=== PATIENT | male | born 1995 | race Hispanic/Latino ===

== ENCOUNTER 2022-10-03 08:15 | Emergency (ER) | payer SELFPAY ==
--- NOTE | 2022-10-03 09:58 | RAD REPORT ---
EXAM DESCRIPTION: Yamilka Single View10/03/2022 9:23 am CLINICAL HISTORY: Cough COMPARISON: 2020 FINDINGS: The lungs appear clear of acute infiltrate. The heart is normal size IMPRESSION: No acute abnormalities displayed
--- NOTE | 2022-10-03 10:01 | EDPHYS ---
Physician Documentation [facility] Name: Milan Perez Age: 26 yrs Sex: Male : 1995 Arrival Date: 10/03/2022 Time: 08:20 Bed IW1 Private MD: ED Physician Huey Samano HPI: 10/03 08:26 This 26 yrs old Male presents to ER via Unassigned with complaints of Ear Pain.jh7 08:26 The patient presents with pain, moderate. The complaints affect the right ear. Onset: jh7 The symptoms/episode began/occurred yesterday. 26-year-old male presents with right ear pain starting yesterday evening. The patient states the pain woke him up last night. Denies any medical history or allergies.. Historical: - Allergies: 08:36 No Known Allergies; jl7 - Home Meds: 08:36 None [Active]; jl7 - PMHx: 08:36 None; jl7 - PSHx: 08:36 None; jl7 - Immunization history:: Client reports receiving the 2nd dose of the Covid vaccine. - Social history:: Smoking status: Patient denies any tobacco usage or history of. ROS: 08:26 ENT: Positive for ear pain, Negative for sinus pain, sore throat. jh7 08:26 All other systems are negative. 08:26 Constitutional: Negative for fever, chills, and weight loss, Eyes: Negative for injury, jh7 pain, redness, and discharge, Neck: Negative for injury, pain, and swelling, Cardiovascular: Negative for chest pain, palpitations, and edema, Abdomen/GI: Negative for abdominal pain, nausea, vomiting, diarrhea, and constipation, Back: Negative for injury and pain, MS/Extremity: Negative for injury and deformity, Skin: Negative for injury, rash, and discoloration, Neuro: Negative for headache, weakness, numbness, tingling, and seizure. 08:26 Respiratory: Positive for cough, Negative for shortness of breath, wheezing. Exam: 08:26 Constitutional: This is a well developed, well nourished patient who is awake, alert, jh7 and in no acute distress. Head/Face: Normocephalic, atraumatic. Eyes: Pupils equal round and reactive to light, extra-ocular motions intact. Lids and lashes normal. Conjunctiva and sclera are non-icteric and not injected. Cornea within normal limits. Periorbital areas with no swelling, redness, or edema. Neck: Trachea midline, no thyromegaly or masses palpated, and no cervical lymphadenopathy. Supple, full range of motion without nuchal rigidity, or vertebral point tenderness. No Meningismus. Cardiovascular: Regular rate and rhythm with a normal S1 and S2. No gallops, murmurs, or rubs. Normal PMI, no JVD. No pulse deficits. Respiratory: Lungs have equal breath sounds bilaterally, clear to auscultation and percussion. No rales, rhonchi or wheezes noted. No increased work of breathing, no retractions or nasal flaring. Back: No spinal tenderness. No costovertebral tenderness. Full range of motion. Skin: Warm, dry with normal turgor. Normal color with no rashes, no lesions, and no evidence of cellulitis. MS/ Extremity: Pulses equal, no cyanosis. Neurovascular intact. Full, normal range of motion. Neuro: Awake and alert, GCS 15, oriented to person, place, time, and situation. Motor strength 5/5 in all extremities. Sensory grossly intact. Normal gait. 08:26 ENT: External ear(s): are unremarkable, Ear canal(s): are normal, TM's: bulging, on the right, erythema, that is moderate. Vital Signs: 08:34 BP 146 / 95; Pulse 71; Resp 17; Temp 98.2(TE); Pulse Ox 99% on R/A; Weight 120.2 kg; 7 Height 6 ft. 0 in. (182.88 cm); Pain 6/10; 08:34 Body Mass Index 35.94 (120.20 kg, 182.88 cm) 7 MDM: 08:22 Patient medically screened. [facility] 10:05 Differential diagnosis: otitis media, otitis externa, ruptured TM, acute otalgia, jh7 cerumen impaction. Data reviewed: vital signs, nurses notes, radiologic studies, plain films. Data interpreted: Pulse oximetry: is 99 %. Interpretation: normal. Counseling: I had a detailed discussion with the patient and/or guardian regarding: the historical points, exam findings, and any diagnostic results supporting the discharge/admit diagnosis, to return to the emergency department if symptoms worsen or persist or if there are any questions or concerns that arise at home. 10/03 08:39 Order name: XRAY Chest (1 view); Complete Time: 10:00 [facility] Administered Medications: No medications were administered Disposition: 12:52 Co-signature as Attending Physician, Huey Samano DO I was immediately available onsite ms3 in the emergency department for consultation in the care of the patient. Disposition Summary: 10/03/22 10:00 Discharge Ordered Location: Home [facility] Problem: new [facility] Symptoms: are unchanged [facility] Condition: Stable [facility] Diagnosis - Acute suppurative otitis media [facility] Followup: [facility] - With: Private Physician - When: 2 - 3 days - Reason: Recheck today's complaints Discharge Instructions: - Discharge Summary Sheet [facility] - Otitis Media, Adult [facility] - Cough, Adult [facility] Forms: - Medication Reconciliation Form [facility] - Thank You Letter [facility] - Antibiotic Education [facility] Prescriptions: - Amoxicillin 875 mg Oral Tablet - take 1 tablet by ORAL route every 12 hours for 10 days; 20 tablet; Refills: 0, jh7 Product Selection Permitted Signatures: Dispatcher [employer] Yajaira Carter RN RN jl7 Huey Samano DO DO ms3 Aminta Vaughan FNP MEDICAL SURGICAL TECH [facility] Corrections: (The following items were deleted from the chart) 08:41 08:26 Constitutional: Negative for fever, chills, and weight loss, Eyes: Negative for jh7 injury, pain, redness, and discharge, Neck: Negative for injury, pain, and swelling, Cardiovascular: Negative for chest pain, palpitations, and edema, Respiratory: Negative for shortness of breath, cough, wheezing, and pleuritic chest pain, Back: Negative for injury and pain, MS/Extremity: Negative for injury and deformity, Skin: Negative for injury, rash, and discoloration, Neuro: Negative for headache, weakness, numbness, tingling, and seizure, 7
--- NOTE | 2022-10-03 10:01 | ER ---
Nurse's Notes [facility] Name: Milan Perez Age: 26 yrs Sex: Male : 1995 Arrival Date: 10/03/2022 Time: 08:20 Bed IW1 Private MD: Diagnosis: Acute suppurative otitis media Presentation: 10/03 08:34 Chief complaint: Patient states: Woke with right ear pain, denies fever, reports dry jl7 cough, works in smoky environment. Coronavirus screen: At this time, the client does not indicate any symptoms associated with coronavirus-19. Ebola Screen: No symptoms or risks identified at this time. Initial Sepsis Screen: Does the patient meet any 2 criteria? No. Patient's initial sepsis screen is negative. Does the patient have a suspected source of infection? No. Patient's initial sepsis screen is negative. Risk Assessment: Do you want to hurt yourself or someone else? Patient reports no desire to harm self or others. Onset of symptoms was October 03, 2022. 08:34 Method Of Arrival: Ambulatory jl7 08:34 Acuity: SUHAS 4 jl7 Triage Assessment: 08:36 General: Appears in no apparent distress. uncomfortable, Behavior is calm, cooperative, jl7 appropriate for age. Pain: Complains of pain in right ear Pain does not radiate. Pain currently is 6 out of 10 on a pain scale. EENT: Ear canal clear on right ear. Historical: - Allergies: 08:36 No Known Allergies; jl7 - Home Meds: 08:36 None [Active]; jl7 - PMHx: 08:36 None; jl7 - PSHx: 08:36 None; jl7 - Immunization history:: Client reports receiving the 2nd dose of the Covid vaccine. - Social history:: Smoking status: Patient denies any tobacco usage or history of. Screenin:23 [facility] ED Fall Risk Assessment (Adult) History of falling in the last 3 months, jl7 including since admission No falls in past 3 months (0 pts). Humpty Dumpty Scale Fall Assessment Tool (age< 18yrs) Gender Male (2 pts). Abuse screen: Denies threats or abuse. Denies injuries from another. Nutritional screening: No deficits noted. Tuberculosis screening: No symptoms or risk factors identified. Fall Risk No fall in past 12 months (0 pts). Vital Signs: 08:34 BP 146 / 95; Pulse 71; Resp 17; Temp 98.2(TE); Pulse Ox 99% on R/A; Weight 120.2 kg; jl7 Height 6 ft. 0 in. (182.88 cm); Pain 6/10; 08:34 Body Mass Index 35.94 (120.20 kg, 182.88 cm) jl7 ED Course: 08:20 Patient arrived in ED. mr 08:22 Aminta Vaughan FNP is [facility] 7 08:22 Huey Samano DO is Attending Physician. jh7 08:36 Triage completed. jl7 08:36 Arm band placed on right wrist. jl7 09:25 XRAY Chest (1 view) In Process Unspecified. [facility] 10:22 Yajaira Knapp, RN is Primary Nurse. jl7 10:23 Patient has correct armband on for positive identification. jl7 10:23 No provider procedures requiring assistance completed. jl7 10:23 Patient did not have IV access during this emergency room visit. jl7 Administered Medications: No medications were administered Medication: 10:23 VIS not applicable for this client. jl7 Outcome: 10:00 Discharge ordered by . jh7 10:23 Discharged to home ambulatory. jl7 10:23 Condition: stable 10:23 Discharge instructions given to patient, Instructed on discharge instructions, follow up and referral plans. medication usage, Demonstrated understanding of instructions, follow-up care, medications, Prescriptions given X 1. 10:23 Patient left the ED. jl7 Signatures: Dispatcher [employer] ONURSC Nancie Kaur mr Yajaira Knapp, RN RN jl7 Aminta Vaughan FNP [employer] [facility]
[2022-10-03 10:28] VITALS: BP 146/95; TEMP 98.2; O2SAT 99
== END 2022-10-03 10:23 | disposition home or self-care (01) ==
LOC: ER 08:15
DX: H66.001 Acute suppurative otitis media without spontaneous rupture of ear drum, right ear (principal); R05.9 Cough, unspecified
CPT/HCPCS: 71045; 99283